=== PATIENT | female | born 1980 | race Caucasian/White ===

== ENCOUNTER → 2024-04-10 06:20 | Day surgery (SDC) | payer BC, SELFPAY | LOC: GI 06:20 | PROVIDERS: ATTENDING PHYSICIAN Internal Medicine | DX: Z12.11 Encounter for screening for malignant neoplasm of colon (principal); R19.7 Diarrhea, unspecified; D12.3 Benign neoplasm of transverse colon | CPT/HCPCS: 45380; 88305 ==

== ENCOUNTER → 2024-05-15 18:25 | Outpatient (REF) | payer BC, SELFPAY | LOC: WDC 18:25 | PROVIDERS: ATTENDING PHYSICIAN Internal Medicine; FAMILY PHYSICIAN Nurse Practitioner Family | DX: Z12.31 Encounter for screening mammogram for malignant neoplasm of breast (principal); Z12.39 Encounter for other screening for malignant neoplasm of breast | CPT/HCPCS: 77063; 77067 ==